=== PATIENT | female | born 1945 | race African-American/Black ===

== ENCOUNTER 2020-04-27 07:25 | Emergency (ER) | payer BC, OTHER ==
[2020-04-27 07:29] VITALS: BP 0/0; BMI 26.2
[2020-04-27] MEDS ORDERED: EPINEPHrine 1:10,000 (P-F SYR) 1 MG/10 ML DISP.SYRIN ONE (07:31)
--- NOTE | 2020-04-27 07:43 | PDOC ---
History of Present Illness - General Chief Complaint: Cardiac Arrest Stated Complaint: Cardiac Arrest Time Seen by Provider: 04/27/20 07:26 History Source: EMS Exam Limitations: Unresponsive, Other (ongoing CPR) - History of Present Illness Initial Comments: 04/27/20 07:41 History obtained by EMS. 75y F with PMH of HTN presenting to the ER via EMS active CPR for asystolic arre st x50 minutes. Per EMS, aide witnessed patient pass out and called EMS. Pt was unresponsive for 10 minutes prior to EMS arrival. Rhythm showed asystole. CPR was started. Pt received total of 5 rounds of epinepherine with most recent dose given 2 minutes prior to ED arrival. Past History - Medical History Allergies/Adverse Reactions: Allergies Allergy/AdvReac Type Severity Reaction Status Date / Time No Known Allergies Allergy Verified 04/15/14 11:09 Home Medications: Ambulatory Orders Atenolol 04/15/14 Benicar - 04/15/14 Cyclobenzaprine HCl [Flexeril -] 10 mg PO TID PRN #21 tablet 04/15/14 HTN: Yes - Reproductive History Is Patient Now?: No - Psycho-Social/Smoking History Smoking History: Unknown if ever smoked Have you smoked in the past 12 months: No Information on smoking cessation initiated: No - Substance Abuse Hx (Audit-C & DAST Scrn) How often the patient has a drink containing alcohol: Never Score: In Men: 4 or > Positive; In Women: 3 or > Positive: 0 Screen Result (Pos requires Nsg. Audit-10AR): Negative In the last yr the pt used illegal drug/Rx for NonMed reason: No Score: Yes response is considered Positive: 0 Screen Result (Positive result requires Nsg. DAST-10): Negative Review of Systems - Review of Systems Able to Perform ROS?: No (cardiac arrest) *Physical Exam - Vital Signs Last Vital Signs Temp Pulse Resp BP Pulse Ox 0/0 L 04/27/20 07:26 - Physical Exam General Appearance: Yes: Other (unresponisve, CPR in progress with ANDREW device) HEENT: positive: Other (pupils fixed) Neck: positive: Other (7.[address]) Respiratory/Chest: positive: Other (ANDREW device on chest. ) Cardiovascular: positive: Other (asystolic arrest) Comments:: 04/27/20 07:58 no pulses Gastrointestinal/Abdominal: positive: Soft Extremity: negative: Pedal Edema Neurologic: positive: Other (cardiac arrest) Medical Decision Making - Medical Decision Making 04/27/20 07:42 75y F with pmh of htn arriving in cardiac arrest x50 minutes, asystole. 5 rounds of epi given. ETT in place confirmed by Dr. Baird. US shows no cardiac activity. Per EMS, family expressed DNR/DNI. TOD 0723 04/27/20 07:59 daughter in ER. explained course of events. certificate by Dr. Frausto. Discharge - Discharge Information Problems reviewed: Yes Clinical Impression/Diagnosis: Cardiac arrest Condition: Disposition: - Admission No - Follow up/Referral - Patient Discharge Instructions - Post Discharge Activity
--- NOTE | 2020-04-27 08:22 | PDOC ---
Attending Attestation - Resident Resident Name: Hien,Nancy - HPI HPI: 04/27/20 08:22 Pt presents to the ED in cardiac arrest after >50 minutes of asystole. EMS called for syncope, found patient to be in cardiac arrest. given epi x 5 without improvement. On arrival to the ED, found to be in PEA, with very slow, wide complex bradycardia. - Physicial Exam PE: 04/27/20 09:13 Agree with resident exam. Patient in PEA with slow, wide complex bradycardia in the 30s. No cardiac activity on POCUS. ETT in place by auscultation and glidescope. - Medical Decision Making 04/27/20 09:16 Pt found in cardiac arrest by EMS. Continued to be in cardiac arrest after >50 min of CPR and epi x 5. Pronounced at 7:20 am. Daughter notified. Discharge - Discharge Information Problems reviewed: Yes Clinical Impression/Diagnosis: Cardiac arrest Condition: Disposition: - Follow up/Referral - Patient Discharge Instructions - Post Discharge Activity
== END 2020-04-27 08:37 | disposition expired ==
LOC: JER 07:25
DX: I46.9 Cardiac arrest, cause unspecified (principal)
CPT/HCPCS: 99283-25